=== PATIENT | female | born 1970 | race Caucasian/White ===

== ENCOUNTER 2023-06-01 13:00 | Day surgery (SDC) | payer OTHER ==
[~2023-06-01] VITALS: Ht 165.1 cm; Wt 81.8 kg
[2023-06-01 13:23] VITALS: BP 133/95
[2023-06-01] MEDS ORDERED: CARBAMAZEPINE200 MG PO ×2 (13:30→13:31)
[2023-06-01] MEDS ORDERED: ZYRTEC10 MG PO (13:31)
[2023-06-01] MEDS ORDERED: CLARITIN10 MG PO (13:31)
[2023-06-01] MEDS ORDERED: PRILOSEC OTC20 MG PO (13:32)
[2023-06-01] MEDS ORDERED: DAILY VITE1 EAC1 PO (13:32)
[2023-06-01] MEDS ORDERED: VITAMIN D310 MC2 PO (13:32)
--- NOTE | 2023-06-01 14:47 | NUR ---
06/01/23 1447 Jocelyn Hester PT TO PACU ALERT AND AWAKE DENIES PAIN AND NAUSEA.
[2023-06-01 15:01] VITALS: BP 152/97
--- NOTE | 2023-06-03 10:03 | OR ---
[facility] [address], [place] [address] Signed DATE OF OPERATION: 06/01/2023 SURGEON: Radha Ledezma MD PREOPERATIVE DIAGNOSIS: Colon screening. POSTOPERATIVE DIAGNOSIS: Small polyp rectosigmoid, possibly hyperplastic. PROCEDURE: Total colonoscopy to cecum with cold morcellation polypectomy x1. ANESTHESIA: Intravenous sedation; fentanyl 100 mcg, Versed 6 mg. INDICATION: This 53-year-old white woman is a patient of Dr. David Guillermo and was referred for screening colonoscopy. She has had no symptoms of bleeding, diarrhea, or constipation. She does believe that she has celiac disease, though she has not formally been tested for it. She avoids gluten in her diet and feels vastly better generally speaking due to that. She has no family history of colon cancer. She is admitted to undergo screening colonoscopy. She understands the risk of bleeding, infection, and perforation. FINDINGS: The prep was good. Complete colonoscopy was undertaken of the cecum without question. She had full intubation of the cecum. There was a small polyp of the rectosigmoid easily identified and possibly hyperplastic, though final pathology is pending. The remaining colon and rectum are normal. DESCRIPTION OF PROCEDURE: The patient was brought to the endoscopy suite and placed in the lateral decubitus position, given intravenous sedation to the point of slurred speech and nystagmus. Digital rectal examination was normal. An Olympus video colonoscope was passed in the rectum and manipulated throughout the colon ultimately intubating the cecum itself. The ileocecal valve and appendiceal orifice were normal. Irrigation was undertaken in the right colon and upon withdrawal of the scope, no findings were noted until the rectosigmoid where small polyp was noted suggestive of an adenoma, though may be hyperplastic. This was excised with cold Electronically Signed By: RADHA LEDEZMA MD 06/03/23 1003 PATIENT NAME: RADAMES BRAR OPERATIVE REPORT DATE OF : 70 REPORT #: [id number] PHYSICIAN: RADHA LEDEZMA MD PCP: DAVID GUILLERMO MD REPORT IS CONFIDENTIAL AND NOT TO BE RELEASED WITHOUT AUTHORIZATION [facility] [address], [place] [address] Signed morcellation technique without problem. Retroflexed view of the rectum was normal as well. The scope was straightened, withdrawn and removed. The patient was taken to the recovery room in good condition. CONCLUDING DIAGNOSIS: Small polyp rectosigmoid. PLAN: If adenomatous, would recommend repeat colonoscopy in 3 years and if hyperplastic, 5 to 10 years. MD KELSIE Ugalde/LAZARUSL /[id number] cc: David Guillermo MD Copies: DAVID GUILLERMO MD ~ Electronically Signed By: RADHA LEDEZMA MD 06/03/23 1003 PATIENT NAME: RADAMES BRAR OPERATIVE REPORT DATE OF : 70 REPORT #: [id number] PHYSICIAN: RADHA LEDEZMA MD PCP: DAVID GUILLERMO MD REPORT IS CONFIDENTIAL AND NOT TO BE RELEASED WITHOUT AUTHORIZATION
== END 2023-06-01 15:10 | disposition home or self-care (01) ==
LOC: DS 13:00 → OPS 13:00 → DS 13:10 → OPS 14:00 → DS 14:00 → OPS 15:10
PROVIDERS: ATTEND Surgery
PROC: 0DBN8ZX Excision of Sigmoid Colon, Via Natural or Artificial Opening Endoscopic, Diagnostic (ICD-10-PCS; principal; 2023-06-01 14:00)
DX: Z12.11 Encounter for screening for malignant neoplasm of colon (principal); K63.5 Polyp of colon; J45.909 Unspecified asthma, uncomplicated; G40.909 Epilepsy, unspecified, not intractable, without status epilepticus; Z88.0 Allergy status to penicillin; Z88.6 Allergy status to analgesic agent; Z88.1 Allergy status to other antibiotic agents; Z88.8 Allergy status to other drugs, medicaments and biological substances; Z79.899 Other long term (current) drug therapy
CPT/HCPCS: 99153; G0500; J2250; J3010; J7121